=== PATIENT | male | born 1955 | race Caucasian/White ===

== ENCOUNTER 2016-08-14 11:45 | Inpatient (IN) | payer OTHER ==
[~2016-08-14] VITALS: Ht 177.8 cm; Wt 99.7 kg
[~2016-08-14 11:45] MED LIST: ASPIR-LOW81 MG PO; FLOMAX0.4 MG PO; LOSARTAN POTASS25 MG PO; NORCO 5/3251 TABLET PO; ZOFRAN4 MG PO
[2016-08-14 14:22] LABS: BASOPHIL COUNT 0.1 K/uL (0-0.1); EOSINOPHIL (%) 0.8 % (0-5); EOSINOPHIL COUNT 0.1 K/uL (0-0.3); HEMATOCRIT 42.7 % (38.0-50.0); IMMATURE GRANULOCYTE (%) 0.2 % (0.0-0.7); INSTRUMENT ABS NEUTROPHIL CT 7.1 K/uL; LYMPHOCYTE COUNT 1.9 K/uL (1.0-2.8); MCH 28.7 PG (29.0-34.0); MCHC 32.8 G/DL (30.0-36.0); MCV 87.5 FL (86-99); MEAN PLAT.VOLUME 9.2 uM^3 (9.0-12.4); NEUTROPHIL (%) 69.7 % (45-76); NEUTROPHIL COUNT 7.1 K/uL (1.8-6.4); PLATELET COUNT 294 K/uL (156-360); RBC DIS.WIDTH-CV 13.3 % (11.8-14.6); RBC DIS.WIDTH-SD 42.8 % (39-53); RED BLOOD COUNT 4.88 M/uL (4.00-5.50); WHITE BLOOD COUNT 10.1 K/uL (4.1-10.2)
[2016-08-14 14:31] LABS: CHLORIDE 105 mEq/L (99-109); POTASSIUM 4.7 mEq/L (3.7-5.4); SODIUM 137 mEq/L (136-147)
[2016-08-14 14:32] LABS: GLUCOSE 89 mg/dL (70-99)
[2016-08-14 14:34] LABS: ANION GAP 7 MEQ/L (2-14)
[2016-08-14 14:36] LABS: GFR ESTIMATE (CALCULATED) > 59 mL/min/
[2016-08-14 14:36] LABS: ADD MIUA? NO; BILIRUBIN NEGATIVE; BLOOD NEGATIVE; COLOR YELLOW ((YELLOW)); GLUCOSE (STRIP) NEGATIVE; KETONES NEGATIVE; LEUKOCYTES NEGATIVE; NITRITE NEGATIVE; PROTEIN (STRIP) NEGATIVE; UROBILINOGEN 0.2 MG/DL (0.2-1.0)
[2016-08-14 14:37] LABS: UREA NITROGEN (BUN) 15 mg/dL (9-23)
[2016-08-14] MEDS ORDERED: LOSARTAN POTASS25 MG PO (22:38)
[2016-08-14] MEDS ORDERED: LO-DOSE ASPIRIN81 M2 PO (22:38)
[2016-08-14 23:22] VITALS: BP 131/82
[2016-08-15 04:04] VITALS: BP 113/57
[2016-08-15 07:41] VITALS: BP 125/72
[2016-08-15 15:48] VITALS: BP 124/70
[2016-08-15 20:11] VITALS: BP 118/74
[2016-08-16 00:36] VITALS: BP 127/78
[2016-08-16 03:50] VITALS: BP 129/75
[2016-08-16 08:48] VITALS: BP 109/57
[2016-08-16] MEDS ORDERED: PERCOCET 5/31 TABLET PO (11:05)
[2016-08-16 16:13] VITALS: BP 118/71
[2016-08-16 19:44] VITALS: BP 114/68
[2016-08-17 05:03] VITALS: BP 112/68
[2016-08-17 08:02] VITALS: BP 125/73
[2016-08-17 16:00] VITALS: BP 139/78
[2016-08-17 18:03] LABS: ADD MIUA? YES; BILIRUBIN NEGATIVE; BLOOD SMALL; COLOR YELLOW ((YELLOW)); GLUCOSE (STRIP) NEGATIVE; KETONES NEGATIVE; LEUKOCYTES NEGATIVE; NITRITE NEGATIVE; PROTEIN (STRIP) NEGATIVE; SPECIFIC GRAVITY 1.018 (1.000-1.030); UROBILINOGEN 0.2 MG/DL (0.2-1.0)
[2016-08-17 18:20] LABS: BACTERIA NONE SEEN /HPF; EPITHELIAL CELLS NONE SEEN /HPF; HYALINE CASTS 0-5 /LPF; MUCUS 2+ /LPF; WHITE BLOOD CELLS 0-5 /HPF (0-5)
== END 2016-08-17 19:24 | disposition home or self-care (01) | DRG 352 ==
LOC: EME 11:45 → 3EAST 22:11 → EDOF 22:11 → 3EAST 23:00
PROVIDERS: Emergency Medicine; Surgery
PROC: 0YU64JZ Supplement Left Inguinal Region with Synthetic Substitute, Percutaneous Endoscopic Approach (ICD-10-PCS; principal; 2016-08-15)
DX: K40.30 Unilateral inguinal hernia, with obstruction, without gangrene, not specified as recurrent (principal); Z87.442 Personal history of urinary calculi; K76.0 Fatty (change of) liver, not elsewhere classified; N28.89 Other specified disorders of kidney and ureter; I10 Essential (primary) hypertension
CPT/HCPCS: 74022; 74177; 76870; 80048; 81003; 85025; 99281; 99285; C1781; J0330; J0690; J1100; J1170; J1650; J2405; J2710; J3010; J7030; J7120